=== PATIENT | female | born 1995 ===

== ENCOUNTER 2018-04-12 14:18 | Emergency (ER) | payer OTHER ==
[2018-04-12 15:05] VITALS: BP 102/68
--- NOTE | 2018-04-12 15:11 | UC ---
Skin Complaint HPI - HPI Summary HPI Summary: 22 yo female presents with diffuse rash. She tells me that she had an infected wisdom tooth and was placed on amoxicillin for 10 days. On day 10 of the amoxicillin she developed a body wide red and itchy rash. It has been 3 days since her last dose of amoxcillin and she has taken benadryl everyday with no change in her rash. She has taken PCN in the past with no issue. Denies fever, chills, face/eye/lip/throat swelling, or difficulty breathing. - History of Current Complaint Chief Complaint: UCRash Time Seen by Provider: 04/12/18 15:10 Stated Complaint: RASH Hx Obtained From: Patient Hx Last Menstrual Period: unknown has IUD Onset/Duration: Sudden Onset Pain Intensity: 0 Pain Scale Used: 0-10 Numeric - Allergy/Home Medications Allergies/Adverse Reactions: Allergies Allergy/AdvReac Type Severity Reaction Status Date / Time No Known Allergies Allergy Verified 04/12/18 15:05 Home Medications: Home Medications Levonorgestrel (Iud) [Kyleena IUD] 17.5 mcg IU ONCE 04/12/18 [History Confirmed 04/12/18] Review of Systems Constitutional: Negative Skin: Rash Eyes: Negative ENT: Negative Respiratory: Negative Cardiovascular: Negative Gastrointestinal: Negative Neurovascular: Negative Neurological: Negative Psychological: Negative All Other Systems Reviewed And Are Negative: Yes PMH/Surg Hx/FS Hx/Imm Hx - Additional Past Medical History Additional PMH: None - Surgical History Surgical History: None - Family History Known Family History: Positive: None - Social History Occupation: Student Lives: Dormitory/Roommates Alcohol Use: Occasionally Substance Use Type: None Smoking Status (MU): Never Smoked Tobacco Physical Exam - Summary Physical Exam Summary: GENERAL: NAD. WDWN. No pain distress. SKIN: Diffuse mildly erythematous maculopapular rash on torso and b/l arms. No streaking, bleeding, or drainage. NECK: Supple. Nontender. No lymphadenopathy. CHEST: No accessory muscle use. Breathing comfortably and in no distress. CV: Pulses intact. Cap refill <2seconds NEURO: Alert. PSYCH: Age appropriate behavior. Triage Information Reviewed: Yes Vital Signs: Initial Vital Signs Temp 98.2 F 04/12/18 15:00 Pulse 80 04/12/18 15:00 Resp 20 04/12/18 15:00 BP 102/68 04/12/18 15:00 Pulse Ox 100 04/12/18 15:00 Vital Signs Reviewed: Yes Course/Dx - Course Course Of Treatment: Suspect reaction to PCN. Will treat with prednisone and have her f/u if her symptoms do not improve - Diagnoses Provider Diagnoses: Allergic reaction to antibiotic Discharge - Sign-Out/Discharge Documenting (check all that apply): Patient Departure All imaging exams completed and their final reports reviewed: No Studies - Discharge Plan Condition: Stable Disposition: HOME Prescriptions: predniSONE TAB* [Deltasone 20 MG TAB*] 60 mg PO DAILY #15 tab Patient Education Materials: Antibiotic Medication Allergy (ED), General Allergic Reaction (ED) Referrals: No Primary Care Phys,NOPCP [Primary Care Provider] - Additional Instructions: If you develop a fever, shortness of breath, chest pain, new or worsening symptoms - please call your PCP or go to the ED. - Billing Disposition and Condition Condition: STABLE Disposition: Home
== END 2018-04-12 15:46 | disposition home or self-care (01) ==
LOC: UCEAST 14:18
DX: L27.0 Generalized skin eruption due to drugs and medicaments taken internally (principal); T36.0X5A Adverse effect of penicillins, initial encounter; Y92.9 Unspecified place or not applicable
CPT/HCPCS: 99212; G0463